=== PATIENT | male | born 1980 | race American Indian/Alaskan Native ===

== ENCOUNTER 2017-10-02 09:44 | Emergency (ER) | payer MEDICAID ==
[2017-10-02 09:57] VITALS: BP 138/70; PULSE 63; RESP 16; TEMP 97; O2SAT 100
[2017-10-02] MEDS ORDERED: Sodium Chloride 0.9% 1,000 ML IV STA (10:18)
--- NOTE | 2017-10-02 10:23 | ED PDOC ---
HPI: Abdomen Time Seen by Provider: 10/02/17 10:17 Chief Complaint (Nursing): Abdominal Pain Chief Complaint (Provider): RLQ pain History Per: Patient History/Exam Limitations: no limitations Onset/Duration Of Symptoms: Hrs Current Symptoms Are (Timing): Still Present Location Of Pain/Discomfort: RLQ Quality Of Discomfort: Sharp Associated Symptoms: Chills. denies: Fever, Vomiting, Diarrhea, Chest Pain Exacerbating Factors: Movement Last Bowel Movement: Today Additional Complaint(s): 37 y/o M with no significant PMHx presents c/o RLQ pain since this morning. Patient states pain started suddenly but has been increasing in severity. Admits chills. Denies fever, urinary symptoms, diarrhea, nausea, vomiting. Patient states he had appendectomy years ago. No previous records and no PMD since patient recently moved to the area. Past Medical History Reviewed: Vital Signs Vital Signs: Last Vital Signs Temp 97 F L 10/02/17 09:54 Pulse 63 10/02/17 09:54 Resp 16 10/02/17 09:54 BP 138/70 10/02/17 09:54 Pulse Ox 100 10/02/17 14:23 - Medical History PMH: No Chronic Diseases - Surgical History Surgical History: Appendectomy, Hernia Repair (sports), Tonsillectomy - Family History Family History: States: No Known Family Hx - Home Medications Home Medications: Ambulatory Orders Medication Instructions Recorded Ciprofloxacin HCl [Cipro] 500 mg PO BID #20 tab 10/02/17 Ibuprofen [Motrin] 600 mg PO Q6H PRN #20 tab 10/02/17 Tamsulosin [Flomax] 0.4 mg PO DAILY #14 cap 10/02/17 - Allergies Allergies/Adverse Reactions: Allergies Allergy/AdvReac Type Severity Reaction Status Date / Time No Known Allergies Allergy Verified 10/02/17 09:54 Review of Systems ROS Statement: Except As Marked, All Systems Reviewed And Found Negative Constitutional: Positive for: Chills Gastrointestinal: Positive for: Abdominal Pain (RLQ) Physical Exam - Reviewed Vital Signs Reviewed: Yes - Physical Exam Appears: Positive for: Non-toxic, Uncomfortable Skin: Positive for: Normal Color, Warm Eye Exam: Positive for: Normal appearance, EOMI Cardiovascular/Chest: Positive for: Regular Rate, Rhythm. Negative for: Gallop , Murmur Respiratory: Positive for: Normal Breath Sounds. Negative for: Crackles, Rales , Wheezing, Respiratory Distress Gastrointestinal/Abdominal: Positive for: Bowel Sounds (+in all 4 Qs), Soft, Tenderness (RLQ, R/flank), Guarding. Negative for: Distended, Rebound Back: Positive for: R CVA Tenderness (slight). Negative for: L CVA Tenderness Extremity: Positive for: Normal ROM. Negative for: Tenderness Neurologic/Psych: Positive for: Alert, Oriented. Negative for: Motor/Sensory Deficits - Laboratory Results Result Diagrams: 10/02/17 10:47 10/02/17 10:47 - ECG O2 Sat by Pulse Oximetry: 100 - Progress ED Course And Treament: Blood work reviewed: Unremarkable CT: Nephrocalcinosis B/L. 1 stone present in the bladder: Poss recently passed. Patient revaluated at 13:20: Pain resolved. No urination since at ED. On IV fluids. Will revaluate Revaluated @ 14:22. Voided and urine was sent for UA and UCx. UA positive for blood in the urine Pain resolved To be DC home with Abx, motrin and flomax Medical Decision Making Medical Decision Making: Acute RLQ pain in male with Hx of appendectomy r/o kidney stones CT abd pelvis w/o contrast UA CBC, CMP, Lipase IV fluids Toradol for pain Disposition - Clinical Impression Clinical Impression: Nephrolithiasis - Disposition Referrals: [facility] [Outside] Kenn Felix MD [Staff Provider] - Disposition Time: 14:30 Condition: IMPROVED Additional Instructions: follow up with urologist as instructed return to the ED with any worsening or concerning symptoms Prescriptions: Ciprofloxacin HCl [Cipro] 500 mg PO BID #20 tab Ibuprofen [Motrin] 600 mg PO Q6H PRN #20 tab PRN Reason: Pain, Moderate (4-7) Tamsulosin [Flomax] 0.4 mg PO DAILY #14 cap Instructions: Kidney Stones (ED) Forms: [employer] [facility] ([place])
[2017-10-02 10:50] LABS: BASO % 0.4 % (0.0-2.0); EOS % 0.5 % (0.0-4.0); HEMATOCRIT 43.3 % (35.0-51.0); LYMPH # 1.4 K/uL (1.0-4.3); LYMPH % 16.5 % (20.0-40.0); MEAN CELL VOLUME 83.4 fl (80.0-94.0); MEAN CORPUSCULAR HEMOGLOBIN 26.9 pg (27.0-31.0); MEAN CORPUSCULAR HGB CONC 32.3 g/dL (33.0-37.0); MEAN PLATELET VOLUME 8.5 fl (7.2-11.7); MONO # 0.4 K/uL (0.0-0.8); MONO % 4.2 % (0.0-10.0); NEUT # 6.6 K/uL (1.8-7.0); NEUT % 78.4 % (50.0-75.0); RED CELL DISTRIBUTION WIDTH 13.5 % (11.5-14.5); WHITE BLOOD COUNT 8.4 K/uL (4.8-10.8)
[2017-10-02 11:01] LABS: ALB/GLOB RATIO 1.6 (1.0-2.1); ALKALINE PHOSPHATASE 31 U/L (38-126); ALT/SGPT 32 U/L (21-72); AST/SGOT 30 U/L (17-59); BILIRUBIN,TOTAL 0.5 mg/dl (0.2-1.3); BLOOD UREA NITROGEN 14 mg/dl (9-20); CALCIUM 9.2 mg/dL (8.4-10.2); CARBON DIOXIDE 30 mmol/L (22-30); CHLORIDE 102 mmol/L (98-107); GFR AFRICAN-AMERICAN > 60; GLUCOSE,RANDOM 127 mg/dL (75-110); LIPASE 79 U/L (23-300); POTASSIUM 4.2 MMOL/L (3.6-5.0); SODIUM 140 mmol/l (132-148); TOTAL PROTEIN 7.1 G/DL (6.3-8.2)
--- NOTE | 2017-10-02 12:44 | CT ---
PROCEDURE: CT Abdomen and Pelvis without intravenous contrast HISTORY: r flank pain COMPARISON: None. TECHNIQUE: Technique. Unenhanced study per protocol 4 obstructive uropathy/ renal calculus disease. Radiation dose: Total exam DLP = 950.23 mGy-cm. This CT exam was performed using one or more of the following dose reduction techniques: Automated exposure control, adjustment of the mA and/or kV according to patient size, and/or use of iterative reconstruction technique. FINDINGS: LOWER THORAX: Unremarkable. LIVER: Unremarkable. No gross lesion or ductal dilatation. GALLBLADDER AND BILE DUCTS: Unremarkable. PANCREAS: Unremarkable. No gross lesion or ductal dilatation. SPLEEN: Unremarkable. ADRENALS: Unremarkable. No mass. KIDNEYS AND URETERS: Nephrocalcinosis bilaterally. Innumerable punctate nonobstructing calculi. The largest of these are in mid lower pole collecting system left kidney non larger than 4 mm. VASCULATURE: Unremarkable. No aortic aneurysm. BOWEL: Unremarkable. No obstruction. No gross mural thickening. Diverticulosis without an acute inflammatory component or other associated pathologic process.Constipation without fecal impaction or obstruction. APPENDIX: No abnormalities to suggest acute appendicitis. No right lower quadrant inflammatory processes identified. PERITONEUM: Unremarkable. No free fluid. No free air. LYMPH NODES: Unremarkable. No enlarged lymph nodes. BLADDER: Bladder calculus disease. A solitary 3 mm calculus resides midline urinary bladder. Unremarkable urinary bladder wall. No other suspicious findings. REPRODUCTIVE: Unremarkable. BONES: No acute fracture. OTHER FINDINGS: None. IMPRESSION: Nephrocalcinosis. Bilateral nonobstructing small renal calculi. Solitary calculus in the urinary bladder presumptive evidence for recently passed stone. There is no residual ureteral dilatation or hydronephrosis. Additional benign and/or incidental findings described above.
[2017-10-02 14:08] LABS: RBC URINE 73 /hpf (0-3); URINE BILIRUBIN NEGATIVE (NEGATIVE); URINE BLOOD LARGE (NEGATIVE); URINE COLOR YELLOW (YELLOW); URINE GLUCOSE (UA) NEG (Normal); URINE KETONE NEGATIVE (NEGATIVE); URINE LEUKOCYTE ESTERASE NEG Leu/uL (Negative); URINE PROTEIN NEGATIVE (NEGATIVE); URINE UROBILINOGEN 0.2-1.0 mg/dL (0.2-1.0); WBC URINE 1 /hpf (0-5)
== END 2017-10-02 15:10 | disposition home or self-care (01) ==
LOC: H.ER 09:44
DX: N20.0 Calculus of kidney (principal); N21.0 Calculus in bladder
CPT/HCPCS: 74176; 80053; 81003; 83690; 85025; 87086; 99283; J1885; J7040